=== PATIENT | male | born 1945 | race Caucasian/White ===

== ENCOUNTER 2020-05-26 16:02 | Observation (INO) ==
[2020-05-26 16:42] LABS: Basophils % 0.2 %; Eosinophils # 0.1 K/mcL (0.0-0.6); Eosinophils % 0.4 %; Hemoglobin 10.3 g/dL (12.9-16.9); Immature Granulocytes % 8.6 % (0-4); Lymphocytes # 1.8 K/mcL (0.6-4.6); Mean Corpuscular HGB Conc 33.2 g/dL (31.6-35.5); Mean Corpuscular Hemoglobin 31.2 pg (28.0-33.3); Mean Corpuscular Volume 93.9 fL (83.0-100.0); Mean Platelet Volume 9.9 fL (9.4-12.4); Monocytes # 0.7 K/mcL (0.0-1.3); Platelet Count 303 K/mcL (140-400); Red Cell Distribution Width 17.9 % (11.5-14.5); White Blood Count 12.5 K/mcL (4.3-11.1)
[2020-05-26 17:00] LABS: Alanine Aminotransferase 83 Units/L (7-52); Albumin 2.4 g/dL (3.5-5.7); Albumin/Globulin Ratio 1.1 (1.1-2.2); Alkaline Phosphatase 100 Units/L (34-104); Aspartate Amino Transferase 100 Units/L (13-39); BUN/Creatinine Ratio 29 (6-26); Bilirubin,Total 1.2 mg/dL (0.3-1.0); Blood Urea Nitrogen 22 mg/dL (8-23); Calcium 7.6 mg/dL (8.6-10.3); Carbon Dioxide 27 mEq/L (23-29); Chloride 107 mEq/L (98-107); Creatine Kinase 184 Units/L (30-223); Globulin 2.1 g/dL (2.4-3.5); Glucose 119 mg/dL (70-105); Magnesium 2.1 mg/dL (1.6-2.6); Osmolality,Calculated 292 (280-300); Phosphorous 2.7 mg/dL (2.7-4.5); Potassium 3.6 mEq/L (3.5-5.1); Sodium 139 mEq/L (136-145); Total Protein 4.5 g/dL (6.4-8.9); eGFR For African Americans > 60 (> 60); eGFR For Non-African Americans > 60 (> 60)
[2020-05-26 17:02] LABS: Anisocytosis 1+ (Not Present); Platelet Estimate Normal (Normal); Toxic Granulation Present (Not Present); Troponin I < 0.03 ng/mL (< 0.04)
[2020-05-26 17:03] LABS: INR 1.3; Prothrombin Time 14.7 Seconds (9.4-12.1)
[2020-05-26 17:13] LABS: Thyroid Stimulating Hormone 3.515 mcIU/mL (0.340-5.600)
[2020-05-26 17:25] LABS: Bilirubin,Urine Small (Negative); Blood,Urine Negative (Negative); Clarity,Urine Slightly Cloudy (Clear); Color,Urine Amber (Yellow); Glucose,Urine (UA) Normal (Normal); Ketones,Urine Negative (Negative); Leukocyte Esterase,Urine Negative (Negative); Nitrite,Urine Positive (Negative); Protein,Urine Trace mg/dL (Neg-Trace); Specific Gravity,Urine >= 1.030 (1.010-1.025); Urobilinogen,Urine Normal (Normal)
[2020-05-26 17:28] LABS: Neutrophils # 9.4 K/mcL (1.6-8.9)
[2020-05-26 17:31] LABS: Amorphous Sediment,Urine Many per hpf (None-Few); Bacteria,Urine Moderate per hpf (None-Few); Calcium Oxalate Crystals,Urine Present; Hyaline Casts,Urine Few per lpf (None Seen); Mucus,Urine Few per lpf (None-Few); RBC,Urine 0-3 per hpf (0-3); Squamous Epithelial Cell,Urine Few per hpf (None-Few)
[2020-05-26 17:32] LABS: Granular Casts,Urine Few per lpf (None Seen)
[2020-05-26] MEDS ORDERED: cefTRIAXone 2,000 MG in 0.9 % Sodium Chloride Mini Bag 100 ML IVPB ONE (17:33)
[2020-05-26] MEDS ORDERED: 0.9 % Sodium Chloride 1,000 ML IVC ONE (17:33)
[2020-05-26] MEDS ORDERED: Acetaminophen 325 MG TABLET PO PRN (17:47)
[2020-05-26] MEDS ORDERED: Ondansetron 4 MG/2 ML VIAL IVP PRN (17:47)
[2020-05-26] MEDS ORDERED: Naloxone 0.4 MG/ML INJ IVP PRN (17:47)
[2020-05-26] MEDS: *HR* Amiodarone 200 MG TABLET PO SCH (20:27)
[2020-05-26] MEDS: 0.9 % Sodium Chloride 1,000 ML IVC SCH (20:34)
[2020-05-27] MEDS: 0.9 % Sodium Chloride 1,000 ML IVC SCH ×3 (05:10→20:33)
[2020-05-27] MEDS: Levothyroxine 25 MCG TABLET PO SCH (06:29)
[2020-05-27 06:39] LABS: Hematocrit 25.2 % (37.5-50.1); Hemoglobin 8.2 g/dL (12.9-16.9); Mean Corpuscular HGB Conc 32.5 g/dL (31.6-35.5); Mean Corpuscular Hemoglobin 30.5 pg (28.0-33.3); Mean Corpuscular Volume 93.7 fL (83.0-100.0); Mean Platelet Volume 9.9 fL (9.4-12.4); Platelet Count 245 K/mcL (140-400); Red Blood Count 2.69 M/mcL (4.19-5.50); Red Cell Distribution Width 18.1 % (11.5-14.5); White Blood Count 9.5 K/mcL (4.3-11.1)
[2020-05-27 07:59] LABS: BUN/Creatinine Ratio 29 (6-26); Blood Urea Nitrogen 18 mg/dL (8-23); Calcium 7.1 mg/dL (8.6-10.3); Carbon Dioxide 26 mEq/L (23-29); Chloride 111 mEq/L (98-107); Glucose 76 mg/dL (70-105); Osmolality,Calculated 291 (280-300); Potassium 3.5 mEq/L (3.5-5.1); Sodium 140 mEq/L (136-145); eGFR For African Americans > 60 (> 60); eGFR For Non-African Americans > 60 (> 60)
[2020-05-27] MEDS: *HR* Amiodarone 200 MG TABLET PO SCH ×2 (08:28→20:32)
[2020-05-27] MEDS: Aspirin Enteric Coated 81 MG Tablet PO SCH (08:28)
[2020-05-27] MEDS: cefTRIAXone 2,000 MG in 0.9 % Sodium Chloride Mini Bag 100 ML IVPB SCH (17:44)
[2020-05-28] MEDS: 0.9 % Sodium Chloride 1,000 ML IVC SCH ×3 (05:04→11:50)
[2020-05-28] MEDS: Levothyroxine 25 MCG TABLET PO SCH (05:04)
[2020-05-28 06:54] LABS: Hematocrit 26.3 % (37.5-50.1); Hemoglobin 8.6 g/dL (12.9-16.9); Mean Corpuscular HGB Conc 32.7 g/dL (31.6-35.5); Mean Corpuscular Volume 94.9 fL (83.0-100.0); Mean Platelet Volume 9.9 fL (9.4-12.4); Platelet Count 233 K/mcL (140-400); Red Blood Count 2.77 M/mcL (4.19-5.50); Red Cell Distribution Width 17.8 % (11.5-14.5); White Blood Count 8.1 K/mcL (4.3-11.1)
[2020-05-28 07:16] LABS: BUN/Creatinine Ratio 27 (6-26); Blood Urea Nitrogen 13 mg/dL (8-23); Calcium 6.9 mg/dL (8.6-10.3); Carbon Dioxide 25 mEq/L (23-29); Chloride 113 mEq/L (98-107); Glucose 82 mg/dL (70-105); Osmolality,Calculated 289 (280-300); Potassium 3.2 mEq/L (3.5-5.1); Sodium 140 mEq/L (136-145); eGFR For African Americans > 60 (> 60); eGFR For Non-African Americans > 60 (> 60)
[2020-05-28] MEDS: *HR* Amiodarone 200 MG TABLET PO SCH (08:24)
[2020-05-28] MEDS: Aspirin Enteric Coated 81 MG Tablet PO SCH (08:24)
[2020-05-28 10:34] LABS: Folate 2.9 ng/mL (3.0-16.0)
[2020-05-28 10:48] LABS: Iron 13 mcg/dL (65-175); Transferrin < 75 mg/dL (203-362); Vitamin B12 > 1500 pg/mL (250-1100)
[2020-05-28] MEDS: Hydrocortisone 10 MG TABLET PO SCH (11:50)
[2020-05-28] MEDS: cefTRIAXone 2,000 MG in 0.9 % Sodium Chloride Mini Bag 100 ML IVPB SCH (17:13)
[2020-05-28] MEDS ORDERED: Mirtazapine 15 MG TABLET PO SCH (21:00)
[2020-05-29 04:02] LABS: VBG Ionized Calcium 1.13 mmol/L (1.15-1.35)
[2020-05-29 04:05] LABS: Basophils % 0.4 %; Eosinophils # 0.2 K/mcL (0.0-0.6); Eosinophils % 2.5 %; Hematocrit 25.9 % (37.5-50.1); Hemoglobin 8.5 g/dL (12.9-16.9); Immature Granulocytes % 9.3 % (0-4); Lymphocytes # 1.1 K/mcL (0.6-4.6); Lymphocytes % 13.2 %; Mean Corpuscular HGB Conc 32.8 g/dL (31.6-35.5); Mean Corpuscular Hemoglobin 31.1 pg (28.0-33.3); Mean Corpuscular Volume 94.9 fL (83.0-100.0); Mean Platelet Volume 10.1 fL (9.4-12.4); Monocytes # 0.6 K/mcL (0.0-1.3); Monocytes % 7.2 %; Neutrophils # 5.5 K/mcL (1.6-8.9); Platelet Count 234 K/mcL (140-400); Red Blood Count 2.73 M/mcL (4.19-5.50); Red Cell Distribution Width 17.6 % (11.5-14.5); Segmented Neutrophils % 67.4 %; White Blood Count 8.1 K/mcL (4.3-11.1)
[2020-05-29] MEDS: 0.9 % Sodium Chloride 1,000 ML IVC SCH (05:17)
[2020-05-29] MEDS: Levothyroxine 25 MCG TABLET PO SCH (05:22)
[2020-05-29 07:11] VITALS: BP 113/62
[2020-05-29 07:35] LABS: Alanine Aminotransferase 56 Units/L (7-52); Albumin 1.8 g/dL (3.5-5.7); Albumin/Globulin Ratio 1.1 (1.1-2.2); Alkaline Phosphatase 104 Units/L (34-104); Aspartate Amino Transferase 64 Units/L (13-39); BUN/Creatinine Ratio 20 (6-26); Bilirubin,Direct 0.3 mg/dL (0.0-0.2); Bilirubin,Indirect 0.3 mg/dL (0.0-1.0); Bilirubin,Total 0.6 mg/dL (0.3-1.0); Blood Urea Nitrogen 10 mg/dL (8-23); Carbon Dioxide 23 mEq/L (23-29); Chloride 112 mEq/L (98-107); Globulin 1.7 g/dL (2.4-3.5); Glucose 95 mg/dL (70-105); Osmolality,Calculated 287 (280-300); Potassium 3.4 mEq/L (3.5-5.1); Sodium 139 mEq/L (136-145); Total Protein 3.5 g/dL (6.4-8.9); eGFR For African Americans > 60 (> 60); eGFR For Non-African Americans > 60 (> 60)
[2020-05-29 07:56] LABS: Platelet Estimate Normal (Normal)
[2020-05-29] MEDS: Hydrocortisone 10 MG TABLET PO SCH (09:36)
[2020-05-29] MEDS: Aspirin Enteric Coated 81 MG Tablet PO SCH (09:36)
== END 2020-05-29 12:21 | disposition other institution (70) ==
LOC: INPPIK 16:02 → EMEROOPIK 16:02 → INPPIK 18:20
PROVIDERS: ADMIT Family Medicine; ATTEND Family Medicine

== ENCOUNTER 2020-05-29 11:30 | Inpatient (IN) ==
[2020-05-29] MEDS: Megestrol Acetate 400 MG/10 ML UDC PO SCH (15:16)
[2020-05-29] MEDS: Mirtazapine 15 MG TABLET PO SCH (19:53)
[2020-05-30] MEDS: Levothyroxine 25 MCG TABLET PO SCH (05:54)
[2020-05-30] MEDS: Hydrocortisone 10 MG TABLET PO SCH (09:40)
[2020-05-30] MEDS: Aspirin Enteric Coated 81 MG Tablet PO SCH (09:40)
[2020-05-30] MEDS: Megestrol Acetate 400 MG/10 ML UDC PO SCH (09:40)
[2020-05-30] MEDS: Mirtazapine 15 MG TABLET PO SCH (19:44)
[2020-05-31] MEDS: Levothyroxine 25 MCG TABLET PO SCH (05:46)
[2020-05-31] MEDS: Aspirin Enteric Coated 81 MG Tablet PO SCH (08:25)
[2020-05-31] MEDS: Megestrol Acetate 400 MG/10 ML UDC PO SCH ×2 (08:25→08:31)
[2020-05-31] MEDS: Hydrocortisone 10 MG TABLET PO SCH (08:26)
[2020-05-31 09:41] LABS: Basophils % 0.3 %; Eosinophils # 0.2 K/mcL (0.0-0.6); Eosinophils % 1.5 %; Hematocrit 29.4 % (37.5-50.1); Hemoglobin 9.5 g/dL (12.9-16.9); Lymphocytes # 1.5 K/mcL (0.6-4.6); Lymphocytes % 14.9 %; Mean Corpuscular HGB Conc 32.3 g/dL (31.6-35.5); Mean Corpuscular Hemoglobin 30.4 pg (28.0-33.3); Mean Corpuscular Volume 93.9 fL (83.0-100.0); Mean Platelet Volume 9.9 fL (9.4-12.4); Monocytes # 0.6 K/mcL (0.0-1.3); Neutrophils # 7.2 K/mcL (1.6-8.9); Platelet Count 273 K/mcL (140-400); Red Blood Count 3.13 M/mcL (4.19-5.50); Red Cell Distribution Width 17.8 % (11.5-14.5); Segmented Neutrophils % 71.3 %; White Blood Count 10.1 K/mcL (4.3-11.1)
[2020-05-31 11:25] LABS: Platelet Estimate Normal (Normal)
[2020-05-31] MEDS: levoFLOXacin 750 MG TABLET PO SCH (15:32)
[2020-05-31] MEDS: Doxycycline 100 MG CAPSULE PO SCH (20:31)
[2020-05-31] MEDS: Mirtazapine 15 MG TABLET PO SCH (20:31)
[2020-06-01] MEDS: Levothyroxine 25 MCG TABLET PO SCH (05:50)
[2020-06-01 07:23] LABS: Basophils % 0.5 %; Eosinophils # 0.1 K/mcL (0.0-0.6); Eosinophils % 1.4 %; Hematocrit 26.7 % (37.5-50.1); Hemoglobin 8.5 g/dL (12.9-16.9); Immature Granulocytes % 7.2 % (0-4); Lymphocytes # 1.4 K/mcL (0.6-4.6); Lymphocytes % 16.1 %; Mean Corpuscular HGB Conc 31.8 g/dL (31.6-35.5); Mean Corpuscular Hemoglobin 30.1 pg (28.0-33.3); Mean Corpuscular Volume 94.7 fL (83.0-100.0); Mean Platelet Volume 10.1 fL (9.4-12.4); Monocytes # 0.7 K/mcL (0.0-1.3); Monocytes % 7.8 %; Neutrophils # 5.9 K/mcL (1.6-8.9); Platelet Count 243 K/mcL (140-400); Red Blood Count 2.82 M/mcL (4.19-5.50); Red Cell Distribution Width 18.2 % (11.5-14.5); White Blood Count 8.9 K/mcL (4.3-11.1)
[2020-06-01 07:46] LABS: BUN/Creatinine Ratio 26 (6-26); Blood Urea Nitrogen 11 mg/dL (8-23); Calcium 7.4 mg/dL (8.6-10.3); Carbon Dioxide 29 mEq/L (23-29); Chloride 106 mEq/L (98-107); Glucose 77 mg/dL (70-105); Magnesium 1.7 mg/dL (1.6-2.6); Osmolality,Calculated 286 (280-300); Potassium 3.4 mEq/L (3.5-5.1); Sodium 139 mEq/L (136-145); eGFR For African Americans > 60 (> 60); eGFR For Non-African Americans > 60 (> 60)
[2020-06-01] MEDS: Megestrol Acetate 400 MG/10 ML UDC PO SCH (08:19)
[2020-06-01] MEDS: levoFLOXacin 750 MG TABLET PO SCH (08:20)
[2020-06-01] MEDS: Hydrocortisone 10 MG TABLET PO SCH (08:20)
[2020-06-01] MEDS: Doxycycline 100 MG CAPSULE PO SCH ×2 (08:20→20:44)
[2020-06-01] MEDS: Aspirin Enteric Coated 81 MG Tablet PO SCH (08:20)
[2020-06-01 08:36] LABS: Anisocytosis 1+ (Not Present); Platelet Estimate Normal (Normal); Reactive Lymphocytes Present (Not Present); Toxic Granulation Present (Not Present)
[2020-06-01 09:03] LABS: % Iron Saturation 27 % (20-55); Iron 30 mcg/dL (65-175); Transferrin 79 mg/dL (203-362)
[2020-06-01 09:21] LABS: Ferritin 412 ng/mL (20-250)
[2020-06-01 09:26] LABS: Folate 2.8 ng/mL (3.0-16.0)
[2020-06-01 09:33] LABS: Vitamin B12 > 1500 pg/mL (250-1100)
[2020-06-01] MEDS: Mirtazapine 15 MG TABLET PO SCH (20:45)
[2020-06-02] MEDS: Levothyroxine 25 MCG TABLET PO SCH (05:32)
[2020-06-02 06:10] LABS: Hematocrit 25.1 % (37.5-50.1); Hemoglobin 8.2 g/dL (12.9-16.9); Mean Corpuscular HGB Conc 32.7 g/dL (31.6-35.5); Mean Corpuscular Hemoglobin 30.4 pg (28.0-33.3); Mean Platelet Volume 10.3 fL (9.4-12.4); Platelet Count 260 K/mcL (140-400); Red Cell Distribution Width 18.2 % (11.5-14.5); White Blood Count 9.9 K/mcL (4.3-11.1)
[2020-06-02 06:31] LABS: BUN/Creatinine Ratio 23 (6-26); Blood Urea Nitrogen 11 mg/dL (8-23); Calcium 7.6 mg/dL (8.6-10.3); Carbon Dioxide 29 mEq/L (23-29); Chloride 107 mEq/L (98-107); Glucose 85 mg/dL (70-105); Magnesium 1.7 mg/dL (1.6-2.6); Osmolality,Calculated 287 (280-300); Potassium 3.5 mEq/L (3.5-5.1); Sodium 139 mEq/L (136-145); eGFR For African Americans > 60 (> 60); eGFR For Non-African Americans > 60 (> 60)
[2020-06-02 06:58] LABS: Anisocytosis 1+ (Not Present); Ovalocytes 1+ (Not Present); Platelet Estimate Normal (Normal)
[2020-06-02 07:03] LABS: Hypochromasia Present (Not Present); Poikilocytosis 1+ (Not Present)
[2020-06-02] MEDS: Hydrocortisone 10 MG TABLET PO SCH (09:12)
[2020-06-02] MEDS: levoFLOXacin 750 MG TABLET PO SCH (09:12)
[2020-06-02] MEDS: Aspirin Enteric Coated 81 MG Tablet PO SCH (09:12)
[2020-06-02] MEDS: Doxycycline 100 MG CAPSULE PO SCH ×2 (09:12→20:10)
[2020-06-02] MEDS: Megestrol Acetate 400 MG/10 ML UDC PO SCH (09:13)
[2020-06-02] MEDS: Mirtazapine 15 MG TABLET PO SCH (20:10)
[2020-06-03] MEDS: Levothyroxine 25 MCG TABLET PO SCH (05:58)
[2020-06-03] MEDS: Megestrol Acetate 400 MG/10 ML UDC PO SCH (08:02)
[2020-06-03] MEDS: Hydrocortisone 10 MG TABLET PO SCH (08:02)
[2020-06-03] MEDS: Doxycycline 100 MG CAPSULE PO SCH ×2 (08:02→19:44)
[2020-06-03] MEDS: Aspirin Enteric Coated 81 MG Tablet PO SCH (08:02)
[2020-06-03] MEDS: levoFLOXacin 750 MG TABLET PO SCH (08:02)
[2020-06-03] MEDS: Mirtazapine 15 MG TABLET PO SCH (19:44)
[2020-06-04] MEDS: Levothyroxine 25 MCG TABLET PO SCH (05:46)
[2020-06-04] MEDS: Doxycycline 100 MG CAPSULE PO SCH ×2 (08:19→19:54)
[2020-06-04] MEDS: levoFLOXacin 750 MG TABLET PO SCH (08:19)
[2020-06-04] MEDS: Aspirin Enteric Coated 81 MG Tablet PO SCH (08:19)
[2020-06-04] MEDS: Megestrol Acetate 400 MG/10 ML UDC PO SCH (08:19)
[2020-06-04] MEDS: Hydrocortisone 10 MG TABLET PO SCH (08:19)
[2020-06-04] MEDS: Mirtazapine 15 MG TABLET PO SCH (19:54)
[2020-06-05] MEDS: Levothyroxine 25 MCG TABLET PO SCH (05:25)
[2020-06-05] MEDS: Doxycycline 100 MG CAPSULE PO SCH ×2 (08:31→20:04)
[2020-06-05] MEDS: Megestrol Acetate 400 MG/10 ML UDC PO SCH (08:31)
[2020-06-05] MEDS: Hydrocortisone 10 MG TABLET PO SCH (08:31)
[2020-06-05] MEDS: Aspirin Enteric Coated 81 MG Tablet PO SCH (08:31)
[2020-06-05] MEDS: levoFLOXacin 750 MG TABLET PO SCH (08:31)
[2020-06-05] MEDS: Mirtazapine 15 MG TABLET PO SCH (20:04)
[2020-06-06] MEDS: Levothyroxine 25 MCG TABLET PO SCH (05:50)
[2020-06-06] MEDS: Megestrol Acetate 400 MG/10 ML UDC PO SCH (08:31)
[2020-06-06] MEDS: Folic Acid 1 MG TABLET PO SCH (08:32)
[2020-06-06] MEDS: Aspirin Enteric Coated 81 MG Tablet PO SCH (08:32)
[2020-06-06] MEDS: Doxycycline 100 MG CAPSULE PO SCH ×2 (08:32→21:08)
[2020-06-06] MEDS: levoFLOXacin 750 MG TABLET PO SCH (08:32)
[2020-06-06] MEDS: Hydrocortisone 10 MG TABLET PO SCH (08:32)
[2020-06-06] MEDS: Mirtazapine 15 MG TABLET PO SCH (21:08)
[2020-06-07] MEDS: Levothyroxine 25 MCG TABLET PO SCH (06:04)
[2020-06-07] MEDS: Acetaminophen 325 MG TABLET PO PRN ×2 (06:08→21:09)
[2020-06-07] MEDS: Hydrocortisone 10 MG TABLET PO SCH (08:15)
[2020-06-07] MEDS: Doxycycline 100 MG CAPSULE PO SCH ×2 (08:15→21:09)
[2020-06-07] MEDS: Megestrol Acetate 400 MG/10 ML UDC PO SCH (08:15)
[2020-06-07] MEDS: Aspirin Enteric Coated 81 MG Tablet PO SCH (08:15)
[2020-06-07] MEDS: Folic Acid 1 MG TABLET PO SCH (08:15)
[2020-06-07] MEDS: levoFLOXacin 750 MG TABLET PO SCH (08:15)
[2020-06-07] MEDS: Mirtazapine 15 MG TABLET PO SCH (21:08)
[2020-06-08] MEDS: Levothyroxine 25 MCG TABLET PO SCH (06:52)
[2020-06-08] MEDS: Hydrocortisone 10 MG TABLET PO SCH (07:53)
[2020-06-08] MEDS: Folic Acid 1 MG TABLET PO SCH (07:53)
[2020-06-08] MEDS: Megestrol Acetate 400 MG/10 ML UDC PO SCH (07:53)
[2020-06-08] MEDS: Acetaminophen 325 MG TABLET PO PRN ×2 (07:54→21:11)
[2020-06-08] MEDS: Aspirin Enteric Coated 81 MG Tablet PO SCH (07:54)
[2020-06-08 08:19] LABS: BUN/Creatinine Ratio 30 (6-26); Blood Urea Nitrogen 16 mg/dL (8-23); Calcium 7.9 mg/dL (8.6-10.3); Carbon Dioxide 30 mEq/L (23-29); Chloride 107 mEq/L (98-107); Glucose 90 mg/dL (70-105); Osmolality,Calculated 289 (280-300); Potassium 3.9 mEq/L (3.5-5.1); Sodium 139 mEq/L (136-145); eGFR For African Americans > 60 (> 60); eGFR For Non-African Americans > 60 (> 60)
[2020-06-08 09:11] LABS: Basophils # 0.1 K/mcL (0.0-0.2); Basophils % 0.7 %; Eosinophils # 0.1 K/mcL (0.0-0.6); Eosinophils % 1.4 %; Hematocrit 25.2 % (37.5-50.1); Immature Granulocytes % 6.8 % (0-4); Lymphocytes % 22.5 %; Mean Corpuscular HGB Conc 31.7 g/dL (31.6-35.5); Mean Corpuscular Hemoglobin 30.1 pg (28.0-33.3); Mean Corpuscular Volume 94.7 fL (83.0-100.0); Mean Platelet Volume 10.2 fL (9.4-12.4); Monocytes # 0.8 K/mcL (0.0-1.3); Monocytes % 9.2 %; Neutrophils # 5.2 K/mcL (1.6-8.9); Platelet Count 285 K/mcL (140-400); Red Blood Count 2.66 M/mcL (4.19-5.50); Red Cell Distribution Width 19.4 % (11.5-14.5); Segmented Neutrophils % 59.4 %; White Blood Count 8.7 K/mcL (4.3-11.1)
[2020-06-08 10:52] LABS: Platelet Estimate Normal (Normal)
[2020-06-08 18:09] LABS: QuantiFERON Mitogen minus NIL >10.00 IU/mL
[2020-06-08] MEDS: Mirtazapine 15 MG TABLET PO SCH (21:12)
[2020-06-09] MEDS: Levothyroxine 25 MCG TABLET PO SCH (06:40)
[2020-06-09 07:45] LABS: QuantiFERON NIL 0.02 IU/mL; QuantiFERON-TB Gold In-Tube NEGATIVE (Negative)
[2020-06-09] MEDS: Aspirin Enteric Coated 81 MG Tablet PO SCH (09:32)
[2020-06-09] MEDS: Folic Acid 1 MG TABLET PO SCH (09:32)
[2020-06-09] MEDS: Hydrocortisone 10 MG TABLET PO SCH (09:32)
[2020-06-09] MEDS: Megestrol Acetate 400 MG/10 ML UDC PO SCH (09:32)
[2020-06-09] MEDS: Mirtazapine 15 MG TABLET PO SCH (20:33)
[2020-06-10] MEDS: Levothyroxine 25 MCG TABLET PO SCH (05:32)
[2020-06-10] MEDS: Megestrol Acetate 400 MG/10 ML UDC PO SCH (08:44)
[2020-06-10] MEDS: Hydrocortisone 10 MG TABLET PO SCH (08:45)
[2020-06-10] MEDS: Aspirin Enteric Coated 81 MG Tablet PO SCH (08:45)
[2020-06-10] MEDS: Folic Acid 1 MG TABLET PO SCH (08:45)
[2020-06-10] MEDS: Mirtazapine 15 MG TABLET PO SCH (20:44)
[2020-06-11] MEDS: Levothyroxine 25 MCG TABLET PO SCH (05:41)
[2020-06-11] MEDS: Megestrol Acetate 400 MG/10 ML UDC PO SCH (08:09)
[2020-06-11] MEDS: Hydrocortisone 10 MG TABLET PO SCH (08:09)
[2020-06-11] MEDS: Aspirin Enteric Coated 81 MG Tablet PO SCH (08:10)
[2020-06-11] MEDS: Folic Acid 1 MG TABLET PO SCH (08:10)
[2020-06-11] MEDS: polyethylene glycoL 3350 17 GM POWD.PACK PO PRN (18:44)
[2020-06-11] MEDS: Mirtazapine 15 MG TABLET PO SCH (22:08)
[2020-06-12] MEDS: Levothyroxine 25 MCG TABLET PO SCH (05:50)
[2020-06-12] MEDS: polyethylene glycoL 3350 17 GM POWD.PACK PO PRN (09:47)
[2020-06-12] MEDS: Aspirin Enteric Coated 81 MG Tablet PO SCH (09:47)
[2020-06-12] MEDS: Hydrocortisone 10 MG TABLET PO SCH (09:48)
[2020-06-12] MEDS: Folic Acid 1 MG TABLET PO SCH (09:48)
[2020-06-12] MEDS: Megestrol Acetate 400 MG/10 ML UDC PO SCH (09:48)
[2020-06-12] MEDS: Sennosides/Docusate Sodium TABLET PO SCH (20:34)
[2020-06-12] MEDS: Mirtazapine 15 MG TABLET PO SCH (20:34)
[2020-06-13] MEDS: Levothyroxine 25 MCG TABLET PO SCH (06:16)
[2020-06-13] MEDS: Folic Acid 1 MG TABLET PO SCH (09:13)
[2020-06-13] MEDS: Aspirin Enteric Coated 81 MG Tablet PO SCH (09:13)
[2020-06-13] MEDS: Sennosides/Docusate Sodium TABLET PO SCH ×2 (09:13→20:01)
[2020-06-13] MEDS: Megestrol Acetate 400 MG/10 ML UDC PO SCH (09:13)
[2020-06-13] MEDS: Hydrocortisone 10 MG TABLET PO SCH ×2 (09:14→10:37)
[2020-06-13] MEDS: Mirtazapine 15 MG TABLET PO SCH (20:01)
[2020-06-14] MEDS: Levothyroxine 25 MCG TABLET PO SCH (05:41)
[2020-06-14] MEDS: Hydrocortisone 10 MG TABLET PO SCH (07:37)
[2020-06-14] MEDS: Sennosides/Docusate Sodium TABLET PO SCH ×2 (07:37→19:34)
[2020-06-14] MEDS: Aspirin Enteric Coated 81 MG Tablet PO SCH (07:37)
[2020-06-14] MEDS: Megestrol Acetate 400 MG/10 ML UDC PO SCH (07:37)
[2020-06-14] MEDS: Folic Acid 1 MG TABLET PO SCH (07:38)
[2020-06-14] MEDS: Mirtazapine 15 MG TABLET PO SCH (19:41)
[2020-06-15] MEDS: Levothyroxine 25 MCG TABLET PO SCH (06:17)
[2020-06-15] MEDS: Hydrocortisone 10 MG TABLET PO SCH (07:39)
[2020-06-15] MEDS: Megestrol Acetate 400 MG/10 ML UDC PO SCH (07:39)
[2020-06-15] MEDS: Sennosides/Docusate Sodium TABLET PO SCH ×2 (07:40→19:46)
[2020-06-15] MEDS: Aspirin Enteric Coated 81 MG Tablet PO SCH (07:40)
[2020-06-15] MEDS: Folic Acid 1 MG TABLET PO SCH (07:40)
[2020-06-15] MEDS: Mirtazapine 15 MG TABLET PO SCH (19:47)
[2020-06-16] MEDS: Levothyroxine 25 MCG TABLET PO SCH (05:36)
[2020-06-16] MEDS: Aspirin Enteric Coated 81 MG Tablet PO SCH (09:20)
[2020-06-16] MEDS: Sennosides/Docusate Sodium TABLET PO SCH ×2 (09:20→20:38)
[2020-06-16] MEDS: Hydrocortisone 10 MG TABLET PO SCH (09:20)
[2020-06-16] MEDS: Folic Acid 1 MG TABLET PO SCH (09:20)
[2020-06-16] MEDS: Megestrol Acetate 400 MG/10 ML UDC PO SCH (09:20)
[2020-06-16] MEDS: Mirtazapine 15 MG TABLET PO SCH (20:38)
[2020-06-17] MEDS: Levothyroxine 25 MCG TABLET PO SCH (06:39)
[2020-06-17] MEDS: Megestrol Acetate 400 MG/10 ML UDC PO SCH (09:25)
[2020-06-17] MEDS: Sennosides/Docusate Sodium TABLET PO SCH ×2 (09:26→20:13)
[2020-06-17] MEDS: Hydrocortisone 10 MG TABLET PO SCH (09:26)
[2020-06-17] MEDS: Aspirin Enteric Coated 81 MG Tablet PO SCH (09:26)
[2020-06-17] MEDS: Folic Acid 1 MG TABLET PO SCH (09:27)
[2020-06-17] MEDS ORDERED: Artificial Tears SOLN 15 ML BOTTLE BOTH EYES PRN (20:06)
[2020-06-17] MEDS: Mirtazapine 15 MG TABLET PO SCH (20:13)
[2020-06-18] MEDS: Levothyroxine 25 MCG TABLET PO SCH (05:48)
[2020-06-18] MEDS: Megestrol Acetate 400 MG/10 ML UDC PO SCH (09:20)
[2020-06-18] MEDS: Aspirin Enteric Coated 81 MG Tablet PO SCH (09:21)
[2020-06-18] MEDS: Sennosides/Docusate Sodium TABLET PO SCH ×2 (09:21→20:12)
[2020-06-18] MEDS: Folic Acid 1 MG TABLET PO SCH (09:21)
[2020-06-18] MEDS: Hydrocortisone 10 MG TABLET PO SCH (09:21)
[2020-06-18 09:50] LABS: Basophils # 0.1 K/mcL (0.0-0.2); Basophils % 0.7 %; Eosinophils # 0.2 K/mcL (0.0-0.6); Eosinophils % 1.6 %; Hematocrit 31.1 % (37.5-50.1); Hemoglobin 9.9 g/dL (12.9-16.9); Immature Granulocytes % 8.6 % (0-4); Lymphocytes # 2.7 K/mcL (0.6-4.6); Lymphocytes % 22.3 %; Mean Corpuscular HGB Conc 31.8 g/dL (31.6-35.5); Mean Corpuscular Volume 97.5 fL (83.0-100.0); Mean Platelet Volume 9.4 fL (9.4-12.4); Monocytes # 0.9 K/mcL (0.0-1.3); Monocytes % 7.5 %; Neutrophils # 7.2 K/mcL (1.6-8.9); Platelet Count 286 K/mcL (140-400); Red Blood Count 3.19 M/mcL (4.19-5.50); Red Cell Distribution Width 20.1 % (11.5-14.5); Segmented Neutrophils % 59.3 %; White Blood Count 12.1 K/mcL (4.3-11.1)
[2020-06-18 10:08] LABS: Alanine Aminotransferase 51 Units/L (7-52); Albumin 2.7 g/dL (3.5-5.7); Albumin/Globulin Ratio 1.3 (1.1-2.2); Alkaline Phosphatase 135 Units/L (34-104); Aspartate Amino Transferase 39 Units/L (13-39); BUN/Creatinine Ratio 35 (6-26); Bilirubin,Total 0.4 mg/dL (0.3-1.0); Blood Urea Nitrogen 22 mg/dL (8-23); Calcium 8.5 mg/dL (8.6-10.3); Carbon Dioxide 29 mEq/L (23-29); Chloride 107 mEq/L (98-107); Globulin 2.1 g/dL (2.4-3.5); Glucose 94 mg/dL (70-105); Magnesium 1.7 mg/dL (1.6-2.6); Osmolality,Calculated 295 (280-300); Phosphorous 2.8 mg/dL (2.7-4.5); Potassium 3.9 mEq/L (3.5-5.1); Sodium 141 mEq/L (136-145); Total Protein 4.8 g/dL (6.4-8.9); eGFR For African Americans > 60 (> 60); eGFR For Non-African Americans > 60 (> 60)
[2020-06-18 10:27] LABS: Platelet Estimate Normal (Normal)
[2020-06-18] MEDS: *HR* Heparin 5,000 UNIT/ML VIAL SQ SCH (17:26)
[2020-06-18] MEDS: Mirtazapine 15 MG TABLET PO SCH (20:12)
[2020-06-19] MEDS: *HR* Heparin 5,000 UNIT/ML VIAL SQ SCH (05:47)
[2020-06-19] MEDS: Levothyroxine 25 MCG TABLET PO SCH (05:48)
[2020-06-19 07:02] VITALS: BP 115/56
[2020-06-19] MEDS: Sennosides/Docusate Sodium TABLET PO SCH (08:25)
[2020-06-19] MEDS: Hydrocortisone 10 MG TABLET PO SCH (08:25)
[2020-06-19] MEDS: Folic Acid 1 MG TABLET PO SCH (08:25)
[2020-06-19] MEDS: Aspirin Enteric Coated 81 MG Tablet PO SCH (08:26)
[2020-06-19] MEDS: Megestrol Acetate 400 MG/10 ML UDC PO SCH (08:26)
== END 2020-06-19 12:40 | DRG 945 ==
LOC: INPPIK 11:45
PROVIDERS: ADMIT Family Medicine; ATTEND Family Medicine